=== PATIENT | male | born 1945 ===

== ENCOUNTER 2025-07-01 18:32 | Inpatient (IN) | payer OTHER, SELFPAY ==
[2025-07-01 13:13] VITALS: BP 148/76
--- NOTE | 2025-07-01 15:32 | ED.GENMED ---
History of Present Illness
General
Chief Complaint: Male Genito-Urinary Symptoms
Source: patient
Exam Limitations: none
Time Seen by Provider: 07/01/25 15:14
Nursing documentation reviewed up to this point in time: agreed with
History of Present Illness
History of Present Illness:
80-year-old male male presents to the ER for evaluation. Patient had a colonoscopy last week and was not able to urinate after. 2 days after colonoscopy he went to [facility] close to where he lives and they attempted to do a Zaragoza
catheter. He reports it was very traumatic they attempted 5 times. He then followed up with Dr. Chavez his urologist last Thursday (8 days ago). [address] Chavez changed his Zaragoza catheter.
He was away in [place] after that appointment however had to go to the local ER because of bleeding and fever. He was diagnosed with UTI and started on Cipro. He has been bleeding off and on since. He is not on any blood thinners.
They received a phone call stating that Cipro is not the correct antibiotic and to go to the local ER
He currently presents to the ER complaining of persistent bleeding in the Zaragoza catheter and feels weak.
Phy Exam
General Physical Exam
General Presentation: no apparent distress
General age: appears stated age
General Skin: warm and dry
General Habitus: normal
General Mental: alert
General Hydration: appears well hydrated
Cardiovascular Exam
Cardiovascular Exam: regular rate/rhythm, no murmur and normal peripheral pulses
Pulmonary Exam
Pulmonary Exam: lungs clear and no respiratory distress
Gastrointestinal Exam
Gastrointestinal Exam: non tender and soft
Genitourinary Exam Male
Exam Male: other (Patient presents with Zaragoza catheter draining gross blood)
Neurological Exam
Neurological Exam: alert and oriented x3
Musculoskeletal Exam
Musculoskeletal Exam: full ROM
Skin Exam
Skin Exam: normal color and warm/dry
Psychiatric Exam
Psychiatric Exam: normal mood/affect
Course
Orders/Labs/Results
Orders:
Orders
07/01/25 15:31
IV Insert/Care/Rem.- Treatment PRN
07/01/25 16:31
Lidocaine 2% [Lidocaine Uro-Jet 2%] 1 syringe .ROUTE .STK-MED ONE
07/01/25 17:02
Complete Blood Count/With Diff Urgent
Comprehensive Metabolic Panel Urgent
07/01/25 17:06
Urinalysis Reflex To Culture Urgent
Date Specimen was Collected: 07/01/25
Time Specimen was Collected: 15:43
Urine Microscopic Reflex Cult Urgent
Urine Culture Urgent
GEOFF Source: U
Specimen Description:
Date Specimen was Collected: 07/01/25
Time Specimen was Collected: 15:43
07/01/25 17:10
Urine Culture Urgent
GEOFF Source: Urine
Specimen Description:
Abnormal Lab Results
07/01/25 07/01/25
17:02 17:06
RBC 4.24 L 10^6/uL
(4.70-6.10)
Hgb 11.4 L g/dL
(13.0-18.0)
Hct 34.1 L %
(39.0-52.0)
MCH 26.9 L pg
(27.0-31.0)
Abs Immat Gran (auto) 0.2 H 10^3/uL
(0-0.05)
Absolute Neuts (auto) 8.6 H 10^3/uL
(1.4-6.5)
Immature Gran % 1.5 H %
(0-0.5)
Neutrophils % 80.0 H %
(42.2-75.2)
Lymphocytes % 11.7 L %
(20.5-51.1)
Glucose 108 H mg/dl
(70-99)
Ur Occult Blood Reflex 4+ A
(Negative)
Leukocyte Esterase Rfl 2+ A
(Negative)
Urine RBC >100 A /HPF
(0-2)
Urine WBC (Reflex) 11-15 A /HPF
(0-5)
Urine Bacteria (Reflex) Moderate A
(Negative)
Urine Albumin (Reflex) 4+ A
(Neg - Trace)
07/01/25 17:02
07/01/25 17:02
Vital Signs
Initial and Last Documented VS:
Initial Vital Signs
Temp Pulse Resp BP Pulse Ox
97.9 F 81 16 148/76 97
07/01/25 13:13 07/01/25 13:13 07/01/25 13:13 07/01/25 13:13 07/01/25 13:13
Last Documented Vital Signs
Temp Pulse Resp BP Pulse Ox
97.9 F 81 16 148/76 97
07/01/25 13:13 07/01/25 13:13 07/01/25 13:13 07/01/25 13:13 07/01/25 15:52
MDM/Problems Addressed
Differential Diagnosis Includes:
Not limited to UTI weakness sepsis
MDM/Problems Addressed:
As documented patient is a 80-year-old male who presents with Zaragoza catheter with gross hematuria. Patient had this placed initially because of urinary retention status post colonoscopy. He reports when he originally had the catheter inserted it
was at an outside institution and it was very traumatic in nature. Off and on since then he has had intermittent bleeding. He was prescribed Cipro however culture states that he is resistant from previous facility. Culture from previous
institution shows Pseudomonas and gram-negative rods. Case discussed with infectious disease Dr. Wong who does recommend IV Avycaz.
New catheter inserted by nurse, three-way for irrigation. Patient does mention he had fevers intermittently however he is afebrile here with normal white count. He does complain of weakness. Will require admission for multi drug-resistant
infection difficult to treat. His kidney function is normal.
IV antibiotic ordered recommended by infectious disease. Patient is nontachycardic nontachypneic patient admit to the hospital service
*Pulse Oximetry
SaO2: 97
Oxygen Mode of Delivery: Room air
Patient hypoxic: no
*Critical Care Note
Total Time (30-74mins, 75-104mins- exclusive of procedures): Not Applicable
Patient Management
Discussion with other providers: Visual Effects Artist (DR Teresa Lloyd )
ED Attending Note
-
Portions of this chart may have been created with voice recognition software.� Occasional wrong word or��sound alike� substitutions may have occurred due to the inherent limitations of voice recognition software.
Discharge Plan
Departure
Patient Disposition: Admit
Date of Disposition: 07/01/25
Time of Disposition: 17:54
Admit to: Med/Surg
Admit to doctor: hospitalist
Presentation/result/management discussed w/ accepting MD/DO: Hospitalist
Patient with high blood pressure during this ER visit?: Yes
Condition: Fair
Covid-19: Not Applicable
Discharge Problem:
Acute UTI, Hematuria
Prescriptions:
No Action
finasteride 5 MG tablet
5 mg PO DAILY
Referrals:
[facility], [Other]
Leah Gama DO [Family Provider, General]
Interventions
Interventions:
*Risk Screen - Suicide Last Done: 07/01/25 13:15
*Neglect/Abuse Screening Last Done: 07/01/25 13:15
ED-Male Genitourinary Assessment Last Done: 07/01/25 15:53
Discharge Date and Time
Print Language: IRISH
[2025-07-01 17:12] LABS: Hematocrit 34.1 % (39.0-52.0); Hemoglobin 11.4 g/dL (13.0-18.0); Mean Corp Hgb Conc. 33.4 g/dL (33.0-37.0); Mean Corpuscular Volume 80.4 fL (80.0-94.0); Nucleated Red Blood Cells % 0 % (-); Platelet Count 254 10^3/uL (130-400); Red Cell Dist. Width 14.4 % (11.5-14.5)
[2025-07-01 17:19] LABS: Urine Character Cloudy (Clear)
[2025-07-01 17:32] LABS: Urine Squamous Cell 0-2 /LPF (Few)
[2025-07-01 17:33] LABS: Urine Red Blood Cell >100 /HPF (0-2)
[2025-07-01 17:35] LABS: ALT (SGPT) 20 U/L (0-50); AST (SGOT) 24 U/L (17-59); Albumin 3.9 g/dl (3.5-5.0); Alkaline Phosphatase 66 U/L (38-126); Blood Urea Nitrogen 15 mg/dl (9-20); Calcium 9.5 mg/dl (8.4-10.2); Carbon Dioxide 30 mmol/L (22-30); Chloride 102 mmol/L (98-107); Glucose 108 mg/dl (70-99); Potassium 4.0 mmol/L (3.5-5.1); Sodium 138 mmol/L (135-145); Total Protein 7.3 g/dl (6.3-8.2); eGFR > 60.00
--- NOTE | 2025-07-01 18:22 | HPS.HSE ---
Family Physician
-
Family Physician: Leah Gama,
Chief Complaint
-
hematuria
History of Present Illness
80-year-old male past medical history of BPH status post TURP in 2020 presenting with urinary complaints.
He had a colonoscopy last week and was not able to urinate afterwards. 2 days after colonoscopy he went to [facility] where he lives for urinary retention and they attempted to place a Zaragoza catheter. Zaragoza catheter was attempted 5 times
and eventually placed. He followed up with his urologist Dr. Chavez 8 days ago who changed his Zaragoza catheter.
Afterwards he was in [place] and had to go to the emergency room there 3 days ago because of urinary bleeding and fever up to 103. He was diagnosed with UTI and started on ciprofloxacin. He has been having intermittent bleeding since then. He
does not take any blood thinners. He received a phone call that ciprofloxacin is not the correct antibiotic was told to go to the emergency room.
He complains of persistent bleeding in the Zaragoza catheter with clots and feels weak. He has occasional nausea and diarrhea but denies abdominal pain since the catheter was placed. No longer is having fever.
He does not take any blood thinners.
Does not smoke or drink alcohol or use drugs.
Medical History
Past Medical History
Past Medical History: Reports Other ( BPH status post TURP in 2020)
Past Surgical History: Reports Other (TURP)
Social History
Tobacco: Non-smoker
Alcohol: None
Drug: None
Family History
Family History: Not pertinent
Allergies / Home Medications
Allergies reflects when Allergies were last updated in [employer].
Home Medications with original date entered in [employer]
Allergy/Medication List:
Allergies
Allergy/AdvReac Type Severity Reaction Status Date / Time
NKA - No Known Allergies Allergy Unknown Uncoded 08/13/21 09:40
Home Medications
acetaminophen 500 mg tablet 1,000 mg PO DAILYPRN PRN mild pain 07/01/25
cholecalciferol (vitamin D3) 125 mcg (5,000 unit) tablet 125 mcg PO DAILY 07/01/25
ciprofloxacin HCl 500 mg tablet 500 mg PO BID 07/01/25
cyanocobalamin (vitamin B-12) 5,000 mcg sublingual tablet 5,000 mcg sublingual DAILY 07/01/25
hydrochlorothiazide 25 mg tablet 25 mg PO DAILY 07/01/25
ibuprofen 200 mg tablet 400 mg PO DAILYPRN PRN mild pain 07/01/25
pantoprazole 40 mg tablet,delayed release 40 mg PO DAILY 07/01/25
prednisolone acetate 1 % eye drops,suspension 1 drp RIGHT EYE Q4H 07/01/25
tamsulosin 0.4 mg capsule 0.4 mg PO BID 07/01/25
Review of Systems
-
History Source: Patient
A 12 point ROS was completed and negative except as noted: Yes
Constitutional: Reports No Symptoms
EENT: Reports No Symptoms
Respiratory: Reports No Symptoms
Cardiac: Reports No Symptoms
Abdomen/GI: Reports No Symptoms
: Reports See HPI
Musculoskeletal: Reports No Symptoms
Skin: Reports No Symptoms
Neurological: Reports No Symptoms
Endocrine: Reports No Symptoms
Hematologic/Lymphatic: Reports No Symptoms
Psych: Reports No Symptoms
Physical Exam
Vital Signs
Vital Signs
Temp Pulse Resp BP Pulse Ox
97.9 F 81 16 148/76 97
07/01/25 13:13 07/01/25 13:13 07/01/25 13:13 07/01/25 13:13 07/01/25 15:52
Physical Exam
General: Well Developed, Well Nourished and No Apparent Distress
HEENT: NormoCephalic, Moist mucous membranes and Atraumatic
Respiratory: Clear
Cardiac: S1/S2 and Regular Rhythm; No Murmur or Rub
GI: Soft, Non Tender, Non Distended and Normal Bowel Sounds; No Organomegaly
Rectal: Deferred by Provider
Musculoskeletal: No Clubbing, No Cyanosis and No Edema
Skin: No Rash
Neuro: Nonfocal/grossly intact
Laboratory Results
-
07/01/25 17:02
07/01/25 17:02
Laboratory Results
Total Bilirubin 0.7 mg/dl (0.2-1.3) 07/01/25 17:02
AST 24 U/L (17-59) 07/01/25 17:02
ALT 20 U/L (0-50) 07/01/25 17:02
Alkaline Phosphatase 66 U/L (38-126) 07/01/25 17:02
Data Reviewed
-
Lab Data: Labs Reviewed by me
Old Records: Reviewed
Impression/Plan
-
IMPRESSION:
PLAN:
# Multidrug-resistant Pseudomonas UTI
- Prior urine culture grew Pseudomonas greater than 100,000 colonies resistant to aztreonam, ciprofloxacin with intermediate sensitivity to cefepime, inducible beta-lactamase to Zosyn and susceptible to tobramycin
-Repeat urine culture, blood cultures
- ID consulted and recommended Avycaz
-ID requested micro lab to test for Avycaz sensitivity and repeat urine however micro not available currently
# Hematuria secondary to multidrug-resistant Pseudomonas UTI/ secondary to traumatic Zaragoza catheter insertions
- Followed up with urology recently
- Patient with Zaragoza catheter currently
#Recent urinary retention after colonoscopy
#BPH status post TURP in 2020
- Zaragoza catheter in place
-Continue tamsulosin,
Essential hypertension
- Continues hydrochlorothiazide
GERD
- Continue Protonix
Full code
DVT prophylaxis SCDs
Regular diet
[2025-07-01 18:37] VITALS: BMI 22.6
[2025-07-01 19:59] VITALS: BMI 22.1
[2025-07-01 20:08] VITALS: BP 134/58
[2025-07-01] MEDS: FLOMAX 0.4 MG PO (20:35)
[2025-07-01] MEDS: PRED FORTE 1% EYE DROPS 1 DROP RIGHT EYE (22:50)
[2025-07-01 23:00] VITALS: BP 129/54
--- NOTE | 2025-07-01 23:30 | PTCARENOTE ---
Pt came to the floor with one set of blood cultures already drawn. The second set was ordered but not drawn according to computer. Blood culture did not show up on mobilab to draw. New ordered place, blood cultures drawn and sent, then promptly came
up as 'received'. At 23:30, the second blood culture order from the ED listed as 'received'. Therefore, pt has three sets of blood cultures listed as received.
[2025-07-02] MEDS: PRED FORTE 1% EYE DROPS 1 DROP RIGHT EYE ×5 (03:18→19:33)
[2025-07-02 06:55] VITALS: BP 142/60
[2025-07-02 07:58] LABS: Hematocrit 32.2 % (39.0-52.0); Hemoglobin 11.0 g/dL (13.0-18.0); Mean Corp Hgb Conc. 34.2 g/dL (33.0-37.0); Mean Corpuscular Volume 81.3 fL (80.0-94.0); Nucleated Red Blood Cells % 0 % (-); Platelet Count 256 10^3/uL (130-400); Red Cell Dist. Width 14.1 % (11.5-14.5)
[2025-07-02] MEDS: FLOMAX 0.4 MG PO ×2 (08:12→19:33)
[2025-07-02] MEDS: PROTONIX 40 MG PO (08:13)
[2025-07-02] MEDS: ORETIC 25 MG PO (08:13)
[2025-07-02] MEDS: VITAMIN D3 (cholecalciferol) 125 MCG PO (08:13)
[2025-07-02 08:46] LABS: ALT (SGPT) 20 U/L (0-50); AST (SGOT) 23 U/L (17-59); Albumin 3.4 g/dl (3.5-5.0); Alkaline Phosphatase 69 U/L (38-126); Blood Urea Nitrogen 15 mg/dl (9-20); Calcium 9.0 mg/dl (8.4-10.2); Carbon Dioxide 27 mmol/L (22-30); Chloride 102 mmol/L (98-107); Estimated Creatinine Clearance 59 ml/min; Glucose 108 mg/dl (70-99); Potassium 4.0 mmol/L (3.5-5.1); Sodium 137 mmol/L (135-145); Total Protein 6.4 g/dl (6.3-8.2); eGFR > 60.00
--- NOTE | 2025-07-02 10:44 | CONS.URO ---
Consultation
-
Date/Time Consultation Performed: 07/02/2025 1115
Performing Provider: Yogesh
Reason for Consultation: hematuria
Medical History
History of Present Illness
Admission note: 'He had a colonoscopy last week and was not able to urinate afterwards. 2 days after colonoscopy he went to [facility] where he lives for urinary retention and they attempted to place a Zaragoza catheter. Zaragoza catheter was
attempted 5 times and eventually placed. He followed up with his urologist Dr. Chavez 8 days ago who changed his Zaragoza catheter.
Afterwards he was in [place] and had to go to the emergency room there 3 days ago because of urinary bleeding and fever up to 103. He was diagnosed with UTI and started on ciprofloxacin. He has been having intermittent bleeding since then. He
does not take any blood thinners. He received a phone call that ciprofloxacin is not the correct antibiotic was told to go to the emergency room.
He complains of persistent bleeding in the Zaragoza catheter with clots and feels weak. He has occasional nausea and diarrhea but denies abdominal pain since the catheter was placed. No longer is having fever.'
Past Medical History
Past Medical History: None and Other (CAUTI)
Past Surgical History: Urological (TURP 07/2021 {Dr Chavez})
Allergies/Home Medications
Allergies
Allergy/AdvReac Type Severity Reaction Status Date / Time
NKA - No Known Allergies Allergy Unknown Uncoded 08/13/21 09:40
Home Medications
�Medication �Instructions �Recorded �Confirmed �Type
acetaminophen 500 mg tablet 1,000 mg PO DAILYPRN PRN mild pain 07/01/25 07/01/25 History
cholecalciferol (vitamin D3) 125 125 mcg PO DAILY Supplement 07/01/25 07/01/25 History
mcg (5,000 unit) tablet
ciprofloxacin HCl 500 mg tablet 500 mg PO BID Infection 07/01/25 07/01/25 History
cyanocobalamin (vitamin B-12) 5,000 mcg sublingual DAILY 07/01/25 07/01/25 History
5,000 mcg sublingual tablet Supplement
hydrochlorothiazide 25 mg tablet 25 mg PO DAILY Blood Pressure 07/01/25 07/01/25 History
ibuprofen 200 mg tablet 400 mg PO DAILYPRN PRN mild pain 07/01/25 07/01/25 History
pantoprazole 40 mg tablet,delayed 40 mg PO DAILY 07/01/25 07/01/25 History
release
prednisolone acetate 1 % eye 1 drp RIGHT EYE Q4H 07/01/25 07/01/25 History
drops,suspension
tamsulosin 0.4 mg capsule 0.4 mg PO BID 07/01/25 07/01/25 History
Physical Exam
Vital Signs
Vital Signs
Temp Pulse Resp BP Pulse Ox
98.4 F 59 18 135/61 98
07/02/25 06:55 07/02/25 08:13 07/02/25 06:55 07/02/25 08:13 07/02/25 06:55
Lab / Testing Results
Laboratory Results
07/02/25 06:04
07/02/25 06:04
Physical Exam
adult male in bef
General: No Apparent Distress
Genito-urinary: Zaragoza Catheter (slow CBI; outflow is pale pink)
Neuro: Awake and Alert
Psych: Calm
Assessment / Plan
-
recurrent prostatic hemorrhage
difficult Zaragoza
recent CAUTIs
REc: CBI overnight
Zaragoza out in AM
--- NOTE | 2025-07-02 10:54 | CON.ID ---
Consultation
-
Date/Time Consultation Requested: July 01, 20251951
Date/Time Consultation Performed: July 02, 2025 1055
Requesting Provider: Dr. Tomasz Escobedo
Performing Provider: Dr. Teresa Lloyd
Reason for Consultation: Multidrug-resistant Pseudomonas UTI
Chief Complaint / Past History
Chief Complaint
Bloody urine
History of Present Illness
80-year-old male with history of BPH status post TURP who presented to the ER July 01 due to gross hematuria. He developed urinary retention after colonoscopy 06/23. He went to [facility] ED the same day. Failed veliz placement attempts
4 times, eventually successful. He then developed gross hematuria. His local urologist changed the veliz the next day. He then went on vacation in [place] where he developed gross hematuria again with fevers and chills. Temperature was up to
103. 9/3, he went to local emergency department, urine specimen obtained and he was discharged with oral ciprofloxacin. Yesterday he received a call that the bacteria was resistant to Cipro and that he should go to the ER and therefore he came
here yesterday. He continued to have subjective fever and chills. Continues with gross hematuria with clots. In ED he had CBI. After speaking to infectious disease (me), recommendation is to send the original bloody urine for culture to test
for Avycaz sensitivity, then start Avycaz. Pt reports no history of UTI's in the past. He is feeling better today. No further chills. No flank pain.
Past History
Additional Past Medical History:
Hypertension
BPH status post TURP 2020
Allergy History:
NKA - No Known Allergies Allergy (Uncoded 08/13/21 09:40)
Unknown
Medications Reviewed: Yes
Current Antibiotics:
Avycaz
Social History
Tobacco: Non-Smoker
Alcohol: None
Drug: None
Family History
Family History: Not Pertinent
Review of Systems
Review of Systems
General: Fever, Chills and Change in Appetite
HEENT: Negative Sinus Problems or Headache
Cardiovascular: Negative Chest Pain or Dyspnea
Respiratory: Negative Dyspnea or Cough
Gasteroenterology: Negative Nausea, Vomiting or Diarrhea
Genital / Urological: Hematuria; Negative Flank Pain
Endocrine: Weakness
All systems: All other systems were reviewed and were negative
Vital Signs
Temp Pulse Resp BP Pulse Ox
98.4 F 59 18 135/61 98
07/02/25 06:55 07/02/25 08:13 07/02/25 06:55 07/02/25 08:13 07/02/25 06:55
Physical Exam
Physical Exam
Constitutional: No Acute Distress and Comfortable
Eyes: No Conjunctival Hemorrhage and Sclera Anicteric
Cardiovascular: Regular Rate and S1/S2
Pulmonary: Clear
Gastrointestinal: Soft, Non Tender, Non Distended and Normal Bowel Sounds
Genito-Urinary: Other (CBI, no blood in veliz)
Extremities: Negative Edema
Neurological: AO x 3
Lab / Diagnostic Study Results
07/02/25 06:04
07/02/25 06:04
Abs Immat Gran (auto) 0.2 10^3/uL (0-0.05) H 07/02/25 06:04
Absolute Neuts (auto) 6.4 10^3/uL (1.4-6.5) 07/02/25 06:04
Absolute Lymphs (auto) 1.2 10^3/uL (1.2-3.4) 07/02/25 06:04
Absolute Monos (auto) 0.6 10^3/uL (0.1-0.6) 07/02/25 06:04
Absolute Basos (auto) 0.0 10^3/uL (0-0.2) 07/02/25 06:04
Immature Gran % 2.3 % (0-0.5) H 07/02/25 06:04
Neutrophils % 72.8 % (42.2-75.2) 07/02/25 06:04
Lymphocytes % 13.6 % (20.5-51.1) L 07/02/25 06:04
Monocytes % 7.0 % (1.7-9.3) 07/02/25 06:04
Eosinophils % 3.8 % (0-6) 07/02/25 06:04
Basophils % 0.5 % (0-2) 07/02/25 06:04
Ur Squamous Epith Cells 0-2 /LPF (Few) 07/01/25 17:06
Microbiology Results
Micro:
07/01/25 20:58 Blood Culture - Pending
Blood/Venous
07/01/25 19:23 Blood Culture - Pending
Blood/Venous
07/01/25 19:23 Blood Culture - Pending
Blood/Venous
07/01/25 17:06 Urine Culture - Pending
Urine
Assessment / Plan
# Gross hematuria/clot retention due to recent traumatic veliz placement
# Complicated UTI with MDR-Pseudomonas
# hx BPH s/p TURP
- Reviewed 06/28 outside [facility] > 100k Pseudomonas resistant to all abx listed except tobramycin
- Await ucx here.
- Continue ceftaz/avibactam (Avycaz) 2.5 g IV q8 (d1)
- Place in contact isolation.
[2025-07-02] MEDS: MAGIC OR MIRACLE MOUTHWASH 15 ML PO (11:01)
--- NOTE | 2025-07-02 11:32 | W.PN.HOSP.TC ---
Today's Communication/Plan
-
CW IV Avycaz
CW CBI
Consult urology
Assessment / Plan
Assessment / Plan
# Multidrug-resistant Pseudomonas UTI
- Prior urine culture grew Pseudomonas greater than 100,000 colonies resistant to aztreonam, ciprofloxacin with intermediate sensitivity to cefepime, inducible beta-lactamase to Zosyn and susceptible to tobramycin
-Repeat urine culture, blood cultures
- ID consulted and recommended Avycaz
-ID requested micro lab to test for Avycaz sensitivity and repeat urine however micro not available currently
# Hematuria secondary to multidrug-resistant Pseudomonas UTI/ secondary to traumatic Zaragoza catheter insertions
- CW CBI
- Consult Urology
#Recent urinary retention after colonoscopy
#BPH status post TURP in 2020
- Zaragoza catheter in place
-Continue tamsulosin,
Oral pain sec to ulceration on hard palate area -no skin rash- unclear etiology- will tx symptomatically and follow.
Essential hypertension
- Continues hydrochlorothiazide
GERD
- Continue Protonix
Full code
DVT prophylaxis SCDs
Regular diet
Anticipated Discharge: 24 - 48 hours
Subjective/Interval History
-
Date of Service: July 02, 2025
Patient thinks he had fever and chills at home none today. He is afebrile today.
Was also feeling nauseous at home but not today.
Since yesterday he started to notice painful sensation in the center of the top of the upper lip and also pain in the palate area and was having difficulty to eat. All started yesterday. No skin rash. No skin itching.
Denies any shortness of breath or chest pain. No lightheadedness.
Objective Data
-
Labs:
Laboratory Results
07/02/25
06:04
WBC 8.7
Hgb 11.0 L
Hct 32.2 L
Plt Count 256
Sodium 137
Potassium 4.0
Chloride 102
Carbon Dioxide 27
BUN 15
Creatinine 1.0
Glucose 108 H
Calcium 9.0
Total Bilirubin 0.7
AST 23
ALT 20
Alkaline Phosphatase 69
Vital Signs:
Vital Signs
Temp Pulse Resp BP Pulse Ox
98.4 F 59 18 135/61 98
07/02/25 06:55 07/02/25 08:13 07/02/25 06:55 07/02/25 08:13 07/02/25 08:45
I&O
07/01/25 07/02/25 07/03/25
06:59 06:59 06:59
Intake Total 224 / 224
Output Total 850 / 850
Balance -626 / -626
Physical Exam
-
General: Comfortable
HEENT: Other (An apthous ulcer in right lower inner cheek; tiny linear to scattered small ertheymatous tiny ulcers in hard palate )
Respiratory: Clear to Auscultation and Non Labored Respirations; Negative Accessory Resp Muscle Use
Cardiac: Regular Rhythm and S1/S2
GI: Soft
Genito-urinary: Clear Urine (Clearer urine) and Continuous Bladder Irrigation
Neuro: AO x 3
Psych: Calm
Data Reviewed
-
Labs: Labs Reviewed by me
--- NOTE | 2025-07-02 14:02 | TRANSFER ---
report given to ARMANDO Younger on 4W. pt transferred in bed to [facility].
[2025-07-02 15:20] VITALS: BP 136/55
--- NOTE | 2025-07-02 15:38 | CM ---
Met with patient and son at bedside
Pharmacy verified: [facility] @ [address] [facility]
Lives w/ ; multilevel home; 12 steps to enter; 12-13 steps between floors; railing present; 2nd floor bathroom has tub w/ shower
PLOF: Independent with ambulation, stairs, and ADLs; retired; drives; no DME
No SNF or Home Health utilization services
Transport: one of his adult children
Plan: Anticipate discharge to home when medically stable; Case Management will monitor for needs/services
[2025-07-02 23:44] VITALS: BP 143/62
[2025-07-03] MEDS: PRED FORTE 1% EYE DROPS 1 DROP RIGHT EYE ×6 (00:18→19:39)
[2025-07-03 07:35] VITALS: BP 134/63
--- NOTE | 2025-07-03 07:58 | W.PN.URO.CBU ---
Today's Communication / Plan
-
Zaragoza removal/voiding trial
pt can be discharged -- if he runs into trouble, he can be seen in urology office later today
Assessment / Plan
-
resolved, largely, hematuria
Diagnosis
-
Date of Service: July 03, 2025
-
Patient Diagnosis:
recurrent prostatic hemorrhage
difficult Zaragoza
recent CAUTIs
Subjective
-
asleep
Objective
-
Vital Signs
Temp Pulse Resp BP Pulse Ox
98.5 F 60 16 143/62 97
07/02/25 23:44 07/02/25 23:44 07/02/25 23:44 07/02/25 23:44 07/02/25 23:44
Intake and Output
07/02/25 07/03/25 07/04/25
06:59 06:59 06:59
Intake Total 224 / 224 1774 / 1774
Output Total 850 / 850 2950 / 2950
Balance -626 / -626 -1176 / -1176
Intake:
Oral fluids 100 / 100 1650 / 1650
IV fluids (Total) 124 / 124
IV piggybacks 124 / 124
Output:
True Urine Output from CBI 850 / 850 2950 / 2950
Laboratory Results
07/02/25 06:04
07/02/25 06:04
Physical Exam
-
General - asleep
Genitalia - Zaragoza with pink outflow
[2025-07-03] MEDS: VITAMIN D3 (cholecalciferol) 125 MCG PO (08:38)
[2025-07-03] MEDS: FLOMAX 0.4 MG PO ×2 (08:38→19:38)
[2025-07-03] MEDS: ORETIC 25 MG PO (08:38)
[2025-07-03] MEDS: PROTONIX 40 MG PO (08:38)
--- NOTE | 2025-07-03 12:04 | CM ---
Addendum entered by Melissa Guerrero 07/03/25 16:10:
DESTINEE Torres found out from the Medical Team that the patient needs IV antibiotics Avycaz 2.5 IV Q8 for 7 days. DESTINEE Torres met with the son, spouse, and patient who agreed to [facility].
DESTINEE Torres spoke to Negra, the [employer] for [facility], faxed clinical, then was told his insurance denied the patient. [facility] will see if there is another option, perhaps an prior authorization is needed. DESTINEE Torres informed the Medical Team.
DESTINEE Torres found out that patient will ultimately need a catheter so not ready today.
PLAN: Home with [facility]
Original Note:
Following up on patient. RN stated that the Zaragoza was removed and waiting for patient to void. DESTINEE Torres will follow up later to see if patient will be discharging.
PLAN: Like home no needs or with VN services if need a catheter.
--- NOTE | 2025-07-03 13:14 | W.PN.ID1 ---
Date of Service
Date of Service: July 03, 2025
Today's Communication
Continue Avycaz.
Assessment / Plan
# Gross hematuria/clot retention due to recent traumatic veliz placement
# Complicated UTI with MDR-Pseudomonas
# hx BPH s/p TURP
- Reviewed 06/28 outside [facility] > 100k Pseudomonas resistant to all abx listed except tobramycin
- Continue ceftaz/avibactam (Avycaz) 2.5 g IV q8 (d2 of 7) through 07/08/25
- Infusion sheet submitted to [employer] for pricing.
-Continue contact isolation.
Chief Complaint
-: UTI
Subjective / Review of Systems
Continue feels better.
Vital Signs / Physical Exam
Vital Signs
Vital Signs
Temp Pulse Resp BP Pulse Ox
98.4 F 54 16 134/63 99
07/03/25 07:35 07/03/25 07:35 07/03/25 07:35 07/03/25 07:35 07/03/25 08:40
Physical Exam
Constitutional: No Acute Distress and Comfortable
Eyes: No Conjunctival Hemorrhage and Sclera Anicteric
Cardiovascular: Regular Rate and S1/S2
Pulmonary: Clear
Gastrointestinal: Soft, Non Tender and Non Distended
Genito-Urinary: Negative CVA Tenderness
Extremities: Negative Edema
Neurological: AO x 3
Objective Data
Lab Data
Lab Results
07/02/25 06:04
07/02/25 06:04
Estimated Creat Clear 59 ml/min 07/02/25 06:04
Total Bilirubin 0.7 mg/dl (0.2-1.3) 07/02/25 06:04
AST 23 U/L (17-59) 07/02/25 06:04
ALT 20 U/L (0-50) 07/02/25 06:04
Alkaline Phosphatase 69 U/L (38-126) 07/02/25 06:04
Most recent labs reviewed.
Micro Results:
07/01/25 17:06 Urine Culture - Final
Urine NO GROWTH
07/01/25 20:58 Blood Culture - Preliminary
Blood/Venous No Growth in 24 hours- Final report to follow
07/01/25 19:23 Blood Culture - Preliminary
Blood/Venous No Growth in 24 hours- Final report to follow
07/01/25 19:23 Blood Culture - Preliminary
Blood/Venous No Growth in 24 hours- Final report to follow
Care Review
Plan reviewed with: Physician (Dr. Siegel)
--- NOTE | 2025-07-03 15:00 | PTCARENOTE ---
07/03- Patient has been urinating frequently but no more than 150cc each void since removing Zaragoza Catheter. Bladder Scan was 904 post-void of 150 mata colored clear urine. Notified Physician and Urology. Patient had multiple people attempt to
insert Zaragoza Catheter in ER, and he states it was a very painful experience. Asked Physicians if they wanted Urology to attempt re-insertion of Zaragoza d/t difficulty of insertion. Continue to monitor.
[2025-07-03 15:30] VITALS: BP 156/75
--- NOTE | 2025-07-03 15:41 | W.PN.HOSP.TC ---
Today's Communication/Plan
-
Voiding trial with so far over 900 cc retention.
Urology elected to replace Zaragoza catheter.
Continue IV antibiotics
Ongoing arrangements for options of outpatient antibiotic infusion
Discussed with patient's family at the bedside
Assessment / Plan
Assessment / Plan
# Multidrug-resistant complicated Pseudomonas UTI
- Prior urine culture grew Pseudomonas greater than 100,000 colonies resistant to aztreonam, ciprofloxacin with intermediate sensitivity to cefepime, inducible beta-lactamase to Zosyn and susceptible to tobramycin
-Repeat urine culture, blood cultures
- ID consulted and recommended Avycaz through 07/10
- Case management consultation with consideration of outpatient antibiotic infusion
#Recent urinary retention after colonoscopy
#BPH status post TURP in 2020
Status post CBI
Zaragoza catheter removed on 07/03 for voiding trial
Oral pain sec to ulceration on hard palate area -no skin rash- unclear etiology- will tx symptomatically and follow.
Essential hypertension
Hold hydrochlorothiazide acutely
GERD
- Continue Protonix
Full code
DVT prophylaxis SCDs
Regular diet
Anticipated Discharge: 24 - 48 hours
Subjective/Interval History
-
Date of Service: July 03, 2025
Objective Data
-
Vital Signs:
Vital Signs
Temp Pulse Resp BP Pulse Ox
98.4 F 79 16 156/75 100
07/03/25 15:30 07/03/25 15:30 07/03/25 15:30 07/03/25 15:30 07/03/25 15:30
I&O
07/02/25 07/03/25 07/04/25
06:59 06:59 06:59
Intake Total 224 / 224 1774 / 1774
Output Total 850 / 850 2950 / 2950 1700 / 1700
Balance -626 / -626 -1176 / -1176 -1700 / -1700
Physical Exam
-
General: Well Developed and No Apparent Distress
HEENT: Normocephalic, Atraumatic and Moist Mucous Membranes
Respiratory: Clear to Auscultation
Cardiac: Regular Rhythm and S1/S2; Negative Murmur, Rub or Gallop
GI: Soft, Nontender, Nondistended and Normal Bowel Sounds; Negative Organomegaly
Rectal: Deferred by Provider
Musculoskeletal: No Clubbing, No Cyanosis and No Edema
Skin: Negative Rash
Neuro: Nonfocal/Grossly Intact
--- NOTE | 2025-07-03 16:37 | W.PN.URO.CBU ---
Today's Communication / Plan
-
teach veliz and leg bag home \\with veliz
Assessment / Plan
-
resolved, largely, hematuria but could not void h/o difficult veliz I cam e=[braulio bedside spke with t staf 16t fr veliz placed no clots left inoalce
Diagnosis
-
Date of Service: July 03, 2025
-
Patient Diagnosis:
Post Op Day:
Patient Diagnosis:urinary retention despite remote h/o TURP
recurrent prostatic hemorrhage
difficult Veliz
recent CAUTIs
Subjective
-
veliz out could not void
Objective
-
Vital Signs
Temp Pulse Resp BP Pulse Ox
98.4 F 79 16 156/75 100
07/03/25 15:30 07/03/25 15:30 07/03/25 15:30 07/03/25 15:30 07/03/25 15:30
Intake and Output
07/02/25 07/03/25 07/04/25
06:59 06:59 06:59
Intake Total 224 / 224 1774 / 1774
Output Total 850 / 850 2950 / 2950 1700 / 1700
Balance -626 / -626 -1176 / -1176 -1700 / -1700
Intake:
Oral fluids 100 / 100 1650 / 1650
IV fluids (Total) 124 / 124
IV piggybacks 124 / 124
Output:
True Urine Output from [facility] 850 / 850 2950 / 2950 1700 / 1700
Laboratory Results
07/02/25 06:04
07/02/25 06:04
Review of Systems
-
: Difficulty Voiding
Physical Exam
-
General - well developed, well nourished, no acute distress
Chest - clear bilaterally
Abdomen - soft, non-tender, positive bowel sounds, no CVAT, no incisional pain or distention
Genitalia - normal
Rectal - normal
Skin - warm & dry with no rash
Neuro - AOx3, no motor deficits
Extremities - no clubbing, no cyanosis, no edema
Incision - clean, dry
Dressing - clean, dry, intact
Counseling
-
home with veliz
Care Review
Data Reviewed
Discussed with: Hospitalist, Nursing and Family
Total Time Spent with Patient (in minutes): came to room placed difficult veliz
[2025-07-03 23:36] VITALS: BP 143/63
[2025-07-04] MEDS: PRED FORTE 1% EYE DROPS 1 DROP RIGHT EYE ×6 (00:35→21:24)
[2025-07-04 07:32] VITALS: BP 154/63
[2025-07-04] MEDS: FLOMAX 0.4 MG PO ×2 (08:35→19:50)
[2025-07-04] MEDS: VITAMIN D3 (cholecalciferol) 125 MCG PO (08:35)
[2025-07-04] MEDS: PROTONIX 40 MG PO (08:35)
--- NOTE | 2025-07-04 12:10 | W.PN.URO.CBU ---
Today's Communication / Plan
-
Spoke to family at length
Patient will be discharged with Zaragoza
He will begin finasteride once home
He will continue tamsulosin
---
Cystoscopy in 1-2 weeks
Assessment / Plan
-
BPH
CAUTI
Hemorrhagic cystitis: MDR Pseudomonas
Diagnosis
-
Date of Service: July 04, 2025
-
Patient Diagnosis:urinary retention despite remote h/o TURP
recurrent prostatic hemorrhage
difficult Zaragoza
recent CAUTIs: MDR Pseudomonas
Subjective
-
Comfortable
No catheter bother
Objective
-
Vital Signs
Temp Pulse Resp BP Pulse Ox
98.0 F 52 16 154/63 98
07/04/25 07:32 07/04/25 07:32 07/04/25 07:32 07/04/25 07:32 07/04/25 08:40
Intake and Output
07/03/25 07/04/25 07/05/25
06:59 06:59 06:59
Intake Total 1774 / 1774 1454 / 1454
Output Total 2950 / 2950 5275 / 5275
Balance -1176 / -1176 -3821 / -3821
Intake:
Oral fluids 1650 / 1650 1330 / 1330
IV piggybacks 124 / 124 124 / 124
Output:
Urine, Zaragoza 3150 / 3150
Urine, Voided 425 / 425
True Urine Output from [facility] 2950 / 2950 1700 / 1700
Laboratory Results
07/02/25 06:04
07/02/25 06:04
Review of Systems
-
Constitutional: No Symptoms
Respiratory: No Symptoms
Cardiac: No Symptoms
Abdomen/GI: No Symptoms
Neurological: No Symptoms
Physical Exam
-
General - well developed, well nourished, no acute distress
Abdomen - soft, non-tender
Genitalia - normal with Zaragoza draining clear urine
Neuro - AOx3, no motor deficits
Counseling
-
Home with Zaragoza
Outpatient work up
--- NOTE | 2025-07-04 12:49 | W.PN.ID1 ---
Date of Service
Date of Service: July 04, 2025
Today's Communication
Continue Avycaz.
Assessment / Plan
# Gross hematuria/clot retention due to recent traumatic veliz placement
# Complicated UTI with MDR-Pseudomonas
# hx BPH s/p TURP
- Reviewed 06/28 outside [facility] > 100k Pseudomonas resistant to all abx listed except tobramycin
- Continue ceftaz/avibactam (Avycaz) 2.5 g IV q8 (d3)
- Insurance denied home IV abx. I filled out prior authoriztiion form and faxed to [facility].
-Plan to treat with 5 days of Avycaz through 07/06/25 1400pm dose, then dc home
Chief Complaint
-: UTI
Subjective / Review of Systems
Family at bedside.
Feels better. Had clot in veliz this am.
Vital Signs / Physical Exam
Vital Signs
Vital Signs
Temp Pulse Resp BP Pulse Ox
98.0 F 52 16 154/63 98
07/04/25 07:32 07/04/25 07:32 07/04/25 07:32 07/04/25 07:32 07/04/25 08:40
Physical Exam
Constitutional: No Acute Distress and Comfortable
Eyes: No Conjunctival Hemorrhage
Cardiovascular: Regular Rate and S1/S2
Pulmonary: Clear
Gastrointestinal: Soft, Non Tender and Non Distended
Genito-Urinary: Veliz (bag empty)
Extremities: Negative Edema
Neurological: AO x 3
Objective Data
Lab Data
Lab Results
07/02/25 06:04
07/02/25 06:04
Estimated Creat Clear 59 ml/min 07/02/25 06:04
Total Bilirubin 0.7 mg/dl (0.2-1.3) 07/02/25 06:04
AST 23 U/L (17-59) 07/02/25 06:04
ALT 20 U/L (0-50) 07/02/25 06:04
Alkaline Phosphatase 69 U/L (38-126) 07/02/25 06:04
Most recent labs reviewed.
Micro Results:
07/01/25 20:58 Blood Culture - Preliminary
Blood/Venous No Growth in 48 hours- Final report to follow
07/01/25 19:23 Blood Culture - Preliminary
Blood/Venous No Growth in 48 hours- Final report to follow
07/01/25 19:23 Blood Culture - Preliminary
Blood/Venous No Growth in 48 hours- Final report to follow
07/01/25 17:06 Urine Culture - Final
Urine NO GROWTH
Care Review
Plan reviewed with: Physician (Drs. Siegel and Scott)
[2025-07-04 15:25] VITALS: BP 145/63
--- NOTE | 2025-07-04 15:47 | W.PN.HOSP.TC ---
Today's Communication/Plan
-
IV antibiotics through 07/07
Continue Zaragoza catheter
Assessment / Plan
Assessment / Plan
# Multidrug-resistant complicated Pseudomonas UTI
- Prior urine culture grew Pseudomonas greater than 100,000 colonies resistant to aztreonam, ciprofloxacin with intermediate sensitivity to cefepime, inducible beta-lactamase to Zosyn and susceptible to tobramycin
-Repeat urine culture, blood cultures
- ID consulted and recommended Avycaz through 07/10
- Case management consultation with consideration of outpatient antibiotic infusion
#Recent urinary retention after colonoscopy
#BPH status post TURP in 2020
Status post CBI
Failed voiding trial with Zaragoza catheter replaced on 07/03
Plan is to discharge home with 4
Oral pain sec to ulceration on hard palate area -no skin rash- unclear etiology- will tx symptomatically and follow.
Essential hypertension
Hold hydrochlorothiazide acutely
GERD
- Continue Protonix
Full code
DVT prophylaxis SCDs
Regular diet
Anticipated Discharge: 24 - 48 hours
Subjective/Interval History
-
Date of Service: July 04, 2025
Objective Data
-
Vital Signs:
Vital Signs
Temp Pulse Resp BP Pulse Ox
98.0 F 52 16 154/63 98
07/04/25 07:32 07/04/25 07:32 07/04/25 07:32 07/04/25 07:32 07/04/25 08:40
I&O
07/03/25 07/04/25 07/05/25
06:59 06:59 06:59
Intake Total 1774 / 1774 1454 / 1454
Output Total 2950 / 2950 5275 / 5275
Balance -1176 / -1176 -3821 / -3821
Physical Exam
-
General: Well Developed and No Apparent Distress
HEENT: Normocephalic, Atraumatic and Moist Mucous Membranes
Respiratory: Clear to Auscultation
Cardiac: Regular Rhythm and S1/S2; Negative Murmur, Rub or Gallop
GI: Soft, Nontender, Nondistended and Normal Bowel Sounds; Negative Organomegaly
Rectal: Deferred by Provider
Genito-urinary: Zaragoza (Clear urine)
Musculoskeletal: No Clubbing, No Cyanosis and No Edema
Skin: Negative Rash
Neuro: Nonfocal/Grossly Intact
[2025-07-04 23:00] VITALS: BP 140/63
[2025-07-05] MEDS: PRED FORTE 1% EYE DROPS 1 DROP RIGHT EYE ×5 (01:13→20:14)
[2025-07-05] MEDS: PRED FORTE 1% EYE DROPS RIGHT EYE (05:19)
[2025-07-05] MEDS: MIRALAX 17 GRAMS PO (05:26)
[2025-07-05 07:16] VITALS: BP 137/57
[2025-07-05] MEDS: PROTONIX 40 MG PO (08:48)
[2025-07-05] MEDS: FLOMAX 0.4 MG PO ×2 (08:48→20:13)
[2025-07-05] MEDS: VITAMIN D3 (cholecalciferol) 125 MCG PO (08:49)
[2025-07-05] MEDS: ORETIC 25 MG PO (08:49)
--- NOTE | 2025-07-05 10:17 | W.PN.ID1 ---
Date of Service
Date of Service: July 05, 2025
Today's Communication
-Continue Avycaz through 07/06/25 1400pm dose, then dc home.
Assessment / Plan
# Gross hematuria/clot retention due to recent traumatic veliz placement
# Complicated UTI with MDR-Pseudomonas
# hx BPH s/p TURP
- Reviewed 06/28 outside [facility] > 100k Pseudomonas resistant to all abx listed except tobramycin
- Ucx here neg, but urine may have been from [facility] vs gross hematuria, not relaible.
- Continue ceftaz/avibactam (Avycaz) 2.5 g IV q8 (d4 of 5)
- Insurance denied home IV abx. I filled out prior authoriztion form and faxed to [facility], no response yet.
-Continue Avycaz through 07/06/25 1400pm dose, then dc home
Chief Complaint
-: UTI
Subjective / Review of Systems
Feels well.
Vital Signs / Physical Exam
Vital Signs
Vital Signs
Temp Pulse Resp BP Pulse Ox
98.2 F 54 18 137/57 100
07/05/25 07:16 07/05/25 07:16 07/05/25 07:16 07/05/25 07:16 07/05/25 07:16
Physical Exam
Constitutional: No Acute Distress and Comfortable
Eyes: No Conjunctival Hemorrhage
Cardiovascular: Regular Rate and S1/S2
Pulmonary: Clear
Gastrointestinal: Soft, Non Tender and Non Distended
Genito-Urinary: Veliz (bag empty) and Clear Urine
Extremities: Negative Edema
Neurological: AO x 3
Objective Data
Lab Data
Lab Results
07/02/25 06:04
07/02/25 06:04
Estimated Creat Clear 59 ml/min 07/02/25 06:04
Total Bilirubin 0.7 mg/dl (0.2-1.3) 07/02/25 06:04
AST 23 U/L (17-59) 07/02/25 06:04
ALT 20 U/L (0-50) 07/02/25 06:04
Alkaline Phosphatase 69 U/L (38-126) 07/02/25 06:04
Most recent labs reviewed.
Micro Results:
07/01/25 20:58 Blood Culture - Preliminary
Blood/Venous No Growth in 72 hours- Final report to follow
07/01/25 19:23 Blood Culture - Preliminary
Blood/Venous No Growth in 72 hours- Final report to follow
07/01/25 19:23 Blood Culture - Preliminary
Blood/Venous No Growth in 72 hours- Final report to follow
07/01/25 17:06 Urine Culture - Final
Urine NO GROWTH
--- NOTE | 2025-07-05 10:27 | CM ---
Chart reviewed. Cont IV abx. Prior auth submitted to [facility]
Plan was for patient to d/c home w/ abx. However, per ID, patient will get last dose tomorrow to complete abx court, then d/c home
Updated [facility] liaison, left message
Plan: Home, possibly tomorrow. No needs
[2025-07-05 15:00] VITALS: BP 142/64
--- NOTE | 2025-07-05 15:24 | W.PN.HOSP.TC ---
Today's Communication/Plan
-
Continue IV antibiotics through 07/07
Zaragoza catheter
Assessment / Plan
Assessment / Plan
# Multidrug-resistant complicated Pseudomonas UTI
- Prior urine culture grew Pseudomonas greater than 100,000 colonies resistant to aztreonam, ciprofloxacin with intermediate sensitivity to cefepime, inducible beta-lactamase to Zosyn and susceptible to tobramycin
-Repeat urine culture, blood cultures
- ID consulted and recommended Avycaz through 07/10
- Case management consultation with consideration of outpatient antibiotic infusion
#Recent urinary retention after colonoscopy
#BPH status post TURP in 2020
Status post [facility]
Failed voiding trial with Zaragoza catheter replaced on 07/03
Plan is to discharge home with 4
Oral pain sec to ulceration on hard palate area -no skin rash- unclear etiology- will tx symptomatically and follow.
Essential hypertension
Hold hydrochlorothiazide acutely
GERD
- Continue Protonix
Full code
DVT prophylaxis SCDs
Regular diet
Anticipated Discharge: > 48 hours
Subjective/Interval History
-
Date of Service: July 05, 2025
Objective Data
-
Vital Signs:
Vital Signs
Temp Pulse Resp BP Pulse Ox
98.2 F 54 18 137/57 100
07/05/25 07:16 07/05/25 07:16 07/05/25 07:16 07/05/25 07:16 07/05/25 07:16
I&O
07/04/25 07/05/25 07/06/25
06:59 06:59 06:59
Intake Total 1454 / 1454 1692 / 1692
Output Total 5275 / 5275 2700 / 2700
Balance -3821 / -3821 -1008 / -1008
Physical Exam
-
General: Well Developed and No Apparent Distress
HEENT: Normocephalic, Atraumatic and Moist Mucous Membranes
Respiratory: Clear to Auscultation
Cardiac: Regular Rhythm and S1/S2; Negative Murmur, Rub or Gallop
GI: Soft, Nontender, Nondistended and Normal Bowel Sounds; Negative Organomegaly
Rectal: Deferred by Provider
Genito-urinary: Zaragoza (Clear urine)
Musculoskeletal: No Clubbing, No Cyanosis and No Edema
Skin: Negative Rash
Neuro: Nonfocal/Grossly Intact
[2025-07-05 23:04] VITALS: BP 147/64
[2025-07-06] MEDS: PRED FORTE 1% EYE DROPS RIGHT EYE ×2 (00:27→04:24)
[2025-07-06 07:30] VITALS: BP 135/61
[2025-07-06] MEDS: PROTONIX 40 MG PO (08:44)
[2025-07-06] MEDS: VITAMIN D3 (cholecalciferol) 125 MCG PO (08:44)
[2025-07-06] MEDS: PRED FORTE 1% EYE DROPS 1 DROP RIGHT EYE ×2 (08:44→12:16)
[2025-07-06] MEDS: FLOMAX 0.4 MG PO (08:44)
[2025-07-06] MEDS: ORETIC 25 MG PO (08:44)
--- NOTE | 2025-07-06 10:33 | W.DS.TRANS ---
DC Summary - Rn Acls
-
Discharge Instructions:
Discharge Diagnosis/Procedures Complicated UTI
Acute urinary retention
Diet Regular
Instructions:
Stand-Alone Forms:
Changes to Home Medications: No
Discharge Medications:
DC Medications w/original date entered in [employer]
acetaminophen 500 mg tablet 1,000 mg PO DAILYPRN PRN mild pain 07/01/25
cholecalciferol (vitamin D3) 125 mcg (5,000 unit) tablet 125 mcg PO DAILY Supplement 07/01/25
cyanocobalamin (vitamin B-12) 5,000 mcg sublingual tablet 5,000 mcg sublingual DAILY Supplement 07/01/25
hydrochlorothiazide 25 mg tablet 25 mg PO DAILY Blood Pressure 07/01/25
ibuprofen 200 mg tablet 400 mg PO DAILYPRN PRN mild pain 07/01/25
pantoprazole 40 mg tablet,delayed release 40 mg PO DAILY Gastrointestinal Issue 07/01/25
prednisolone acetate 1 % eye drops,suspension 1 drp RIGHT EYE Q4H Eye Condition 07/01/25
tamsulosin 0.4 mg capsule 0.4 mg PO BID Urinary Issue 07/01/25
Home Medication Changes
Pending Results: No
--- NOTE | 2025-07-06 10:42 | W.PN.ID1 ---
Date of Service
Date of Service: July 06, 2025
Today's Communication
Last dose of Avycaz today at 1400.
ID will sign off.
Assessment / Plan
# Gross hematuria/clot retention due to recent traumatic veliz placement
# Complicated UTI with MDR-Pseudomonas
# hx BPH s/p TURP
- Reviewed 06/28 outside [facility] > 100k Pseudomonas resistant to all abx listed except tobramycin
- Ucx here neg, but urine may have been from [facility] vs gross hematuria, not relaible.
- Continue ceftaz/avibactam (Avycaz) 2.5 g IV q8 (d4 of 5)
- Insurance denied home IV abx. I filled out prior authorization form and faxed to [facility], no response yet.
-Continue Avycaz through 07/06/25 1400pm dose today then dc home.
ID will sign off.
Chief Complaint
-: UTI
Subjective / Review of Systems
doing well.
Vital Signs / Physical Exam
Vital Signs
Vital Signs
Temp Pulse Resp BP Pulse Ox
97.7 F 54 16 135/61 99
07/06/25 07:30 07/06/25 07:30 07/06/25 07:30 07/06/25 07:30 07/06/25 07:30
Physical Exam
Constitutional: No Acute Distress and Comfortable
Eyes: No Conjunctival Hemorrhage
Cardiovascular: Regular Rate and S1/S2
Pulmonary: Clear
Gastrointestinal: Soft, Non Tender and Non Distended
Genito-Urinary: Veliz and Clear Urine
Extremities: Negative Edema
Neurological: AO x 3
Objective Data
Lab Data
Lab Results
07/02/25 06:04
07/02/25 06:04
Estimated Creat Clear 59 ml/min 07/02/25 06:04
Total Bilirubin 0.7 mg/dl (0.2-1.3) 07/02/25 06:04
AST 23 U/L (17-59) 07/02/25 06:04
ALT 20 U/L (0-50) 07/02/25 06:04
Alkaline Phosphatase 69 U/L (38-126) 07/02/25 06:04
Most recent labs reviewed.
Micro Results:
07/01/25 20:58 Blood Culture - Preliminary
Blood/Venous No Growth in 4 days- Final report to follow
07/01/25 19:23 Blood Culture - Preliminary
Blood/Venous No Growth in 4 days- Final report to follow
07/01/25 19:23 Blood Culture - Preliminary
Blood/Venous No Growth in 4 days- Final report to follow
07/01/25 17:06 Urine Culture - Final
Urine NO GROWTH
--- NOTE | 2025-07-06 12:09 | CM ---
CM reviewed chart, patient seen bedside, for discharge today. CM confirmed with Dr. Lloyd, patient will receive dose of medication and d/c home, no longer requires prior auth approval. DESTINEE spoke with Tera from [email or web address] ([phone]) to provide update.
IMM verbally reviewed with patient, provided with copy, placed in chart. Patient reports his and son will provide transport home, declining need for VN. CM will continue to follow for all discharge planning needs.
Plan; home no needs.
[2025-07-06 15:35] VITALS: BP 127/60
== END 2025-07-06 17:07 | disposition home or self-care (01) | DRG 699 ==
LOC: 4 WEST ACU 18:32
PROVIDERS: Nurse Practitioner; ADMITTING PHYSICIAN Hospitalist; ATTENDING PHYSICIAN Internal Medicine; CONSULT PHYSICIAN Internal Medicine Infectious Disease; CONSULT PHYSICIAN Specialist; EMERGENCY PHYSICIAN Emergency Medicine; FAMILY PHYSICIAN Family Medicine
PROC: 0T2DX0Z Change Drainage Device in Urethra, External Approach (ICD-10-PCS; 2025-07-01)
DX: T83.518A Infection and inflammatory reaction due to other urinary catheter, initial encounter (principal); N39.0 Urinary tract infection, site not specified; Z16.24 Resistance to multiple antibiotics; T83.83XA Hemorrhage due to genitourinary prosthetic devices, implants and grafts, initial encounter; R31.0 Gross hematuria; I10 Essential (primary) hypertension; K12.0 Recurrent oral aphthae; K13.79 Other lesions of oral mucosa; K21.9 Gastro-esophageal reflux disease without esophagitis; Y84.6 Urinary catheterization as the cause of abnormal reaction of the patient, or of later complication, without mention of misadventure at the time of the procedure; Y92.238 Other place in hospital as the place of occurrence of the external cause; Y73.2 Prosthetic and other implants, materials and accessory gastroenterology and urology devices associated with adverse incidents; R33.8 Other retention of urine; N40.1 Benign prostatic hyperplasia with lower urinary tract symptoms; B96.5 Pseudomonas (aeruginosa) (mallei) (pseudomallei) as the cause of diseases classified elsewhere; Z90.79 Acquired absence of other genital organ(s)
CPT/HCPCS: 80053; 81003; 81015; 85025; 87040; 87086; 99285; J0714